=== PATIENT | male | born 1990 | race Two or more races ===

== ENCOUNTER 2020-01-08 12:09 | Emergency (ER) | payer MEDICAID ==
[~2020-01-08] VITALS: Ht 172.7 cm; Wt 97.0 kg
[2020-01-08] MEDS ORDERED: IBUPROFEN 600MG TABLET PO ONE (13:30)
[2020-01-08 14:00] VITALS: BP 152/85
== END 2020-01-08 14:27 | disposition home or self-care (01) ==
LOC: ER 12:19
DX: S62.314A Displaced fracture of base of fourth metacarpal bone, right hand, initial encounter for closed fracture (principal); W01.0XXA Fall on same level from slipping, tripping and stumbling without subsequent striking against object, initial encounter; Y93.9 Activity, unspecified; Y92.9 Unspecified place or not applicable
CPT/HCPCS: 29125; 73130; 99283

== ENCOUNTER 2020-01-27 14:45 | Emergency (ER) | payer MEDICAID ==
[~2020-01-27] VITALS: Ht 177.8 cm; Wt 95.0 kg
[2020-01-27 15:07] VITALS: BP 167/99
== END 2020-01-27 15:55 | disposition home or self-care (01) ==
LOC: ER 14:45
DX: T16.1XXA Foreign body in right ear, initial encounter (principal); X58.XXXA Exposure to other specified factors, initial encounter; Y93.89 Activity, other specified; Y92.89 Other specified places as the place of occurrence of the external cause; Y99.8 Other external cause status
CPT/HCPCS: 99281

== ENCOUNTER 2020-07-04 12:13 | Emergency (ER) | payer MEDICAID | END 2020-07-04 12:34 | disposition home or self-care (01) | LOC: ER 12:25 | DX: I10 Essential (primary) hypertension (principal); Z53.21 Procedure and treatment not carried out due to patient leaving prior to being seen by health care provider ==

== ENCOUNTER 2022-04-18 05:22 | Emergency (ER) | payer MEDICAID, OTHER ==
[~2022-04-18] VITALS: Ht 172.7 cm; Wt 91.0 kg
[2022-04-18 06:15] LABS: BASOPHILS % 0.5 % (0.0-2.0); EOSINOPHILS % 0.3 % (0.0-5.0); HEMATOCRIT. 43.8 % (42.0-52.0); HEMOGLOBIN. 15.2 g/dL (14.0-18.0); LYMPHOCYTES % 24.9 % (20.0-50.0); MEAN CORPUSCULAR HEMOGLOBIN 31.1 pg (28.0-32.0); MEAN CORPUSCULAR VOLUME 89.8 fL (80.0-94.0); MEAN PLATELET VOLUME 7.3 fl (7.4-10.4); NEUTROPHILS % 70.3 % (40.0-76.0); PLATELET 311 x1000/uL (130-400); RED BLOOD CELL COUNT 4.88 mill/uL (4.7-6.1); RED CELL DISTRIBUTION WIDTH 13.3 % (11.6-14.6)
[2022-04-18 06:21] LABS: CHLORIDE 100 mEq/L (98-107)
[2022-04-18 06:30] LABS: ETHANOL BLOOD 169 mg/dL
[2022-04-18 06:57] VITALS: BP 147/88
== END 2022-04-18 07:07 | disposition home or self-care (01) ==
LOC: ER 05:22
DX: F10.129 Alcohol abuse with intoxication, unspecified (principal); Y90.6 Blood alcohol level of 120-199 mg/100 ml; I10 Essential (primary) hypertension
CPT/HCPCS: 36415; 80053; 80320; 85025; 93005; 99284; G0480

== ENCOUNTER 2023-07-02 13:00 | Emergency (ER) | payer OTHER ==
[~2023-07-02] VITALS: Ht 170.2 cm; Wt 88.5 kg
[2023-07-02 13:16] VITALS: BP 150/101; O2SAT 99
[2023-07-02] MEDS ORDERED: DIPH28.33 TP (14:10)
[2023-07-02] MEDS ORDERED: DIPH25TA62 MT (14:10)
[2023-07-02] MEDS ORDERED: DIPHENHYDRAMINE 50MG/ML VIAL IM ONE (14:30)
[2023-07-02 14:57] VITALS: PULSE 70; RESP 14; TEMP 98.2
== END 2023-07-02 14:59 | disposition home or self-care (01) ==
LOC: ER 13:00
DX: L25.9 Unspecified contact dermatitis, unspecified cause (principal)
CPT/HCPCS: 99283; 96372; J1200